=== PATIENT | male | born 1950 | race Caucasian/White ===

== ENCOUNTER 2017-06-28 13:07 | Inpatient (IN) ==
[2017-06-28] MEDS ORDERED: VANCOMYCIN INJ 1,000 MG in SODIUM CHLORIDE 0.9% 250 ML IV STA (13:47)
[2017-06-28] MEDS ORDERED: VANCOMYCIN 1,000 MG VIAL ONE (13:55)
[2017-06-28] MEDS ORDERED: SODIUM CHLORIDE 0.9% 500 ML IV STA (14:03)
[2017-06-28 14:18] LABS: INR 1.6; PT Patient Result 16.3 SECS; Partial Thromboplastin Time 32.9 SECS (0-40)
[2017-06-28] MEDS ORDERED: ALBUMIN 25% 50 GM in PREMIX 1 EACH IV ONE (14:35)
[2017-06-28] MEDS ORDERED: ALBUMIN 25% 12.5 GM/50 ML VIAL IV ONE (14:37)
[2017-06-28] MEDS ORDERED: DEXTROSE 50% 25 GM/50 ML VIAL IV PRN (16:37)
[2017-06-28] MEDS ORDERED: GLUCAGON 1 MG VIAL IM PRN (16:37)
[2017-06-28] MEDS ORDERED: ONDANSETRON 4 MG/2 ML VIAL IV PRN (16:37)
[2017-06-28] MEDS ORDERED: ONDANSETRON 4 MG TABLET PO PRN (16:39)
[2017-06-28] MEDS ORDERED: MAGNESIUM OXIDE 400 MG TABLET PO SCH (17:00)
[2017-06-28 17:42] LABS: Basophils # 0.1 10*3/uL (0.0-0.2); Basophils % 0.2 % (0.0-0.8); Eosinophils % 0.1 % (0.00-10.9); Hematocrit 28.1 VOL% (42.0-52.0); Hemoglobin 9.4 GM/DL (14.0-18.0); Immature Granulocytes % 1.8 %; Immature Granulocytes Absolute 0.47 #; Lymphocytes # 0.4 10*3/uL (1.4-4.0); Lymphocytes % 1.4 % (21.2-54.2); Mean Corpuscular HGB Conc 33.5 GM/DL (32-36); Mean Corpuscular Hemoglobin 37 PG (27-34); Mean Corpuscular Volume 110.6 FL (87-102); Mean Platelet Volume 13.2 FL (9.6-12.0); Monocytes # 0.4 10*3/uL (0.11-0.8); Monocytes % 1.6 % (1.7-12.7); Neutrophils % 94.9 % (38.7-73.9); Red Blood Count 2.54 MC/CUMM (3.8-5.5); Red Cell Distribution Width 16.5 % (9.3-17.3); White Blood Count 26.4 T/CUMM (4-12)
[2017-06-28 17:44] LABS: Platelet Count 74 T/CUMM (130-400)
[2017-06-28] MEDS: CLINDAMYCIN 300 MG CAPSULE PO SCH ×2 (17:44→21:42)
[2017-06-28 17:54] LABS: Albumin 1.7 G/DL (3.4-5.0); Bilirubin,Direct 1.3 MG/DL (0.0-0.20); Bilirubin,Total 2.3 MG/DL (0.2-1.0); Calcium 7.8 MG/DL (8.5-10.1); Potassium 5.9 MMOL/L (3.5-5.1); Total Protein 5.2 G/DL (6.4-8.3)
[2017-06-28 18:14] LABS: Band Neutrophils 10 % (0-10); Platelet Estimate Decreased; Segmented Neutrophils 88 % (50-85); Total Cells Counted 100
[2017-06-28] MEDS ORDERED: VANCOMYCIN INJ 1,500 MG in SODIUM CHLORIDE 0.9% 500 ML IV SCH (19:00)
[2017-06-28] MEDS ORDERED: SODIUM POLYSTYRENE SULFATE 15 GM/60 ML BOTTLE PO ONE (19:00)
[2017-06-28] MEDS ORDERED: VANCOMYCIN INJ 500 MG in SODIUM CHLORIDE 0.9% 100 ML IV ONE (20:00)
[2017-06-28] MEDS: MUPIROCIN 2% OINT 22 GM TUBE TOP SCH (21:42)
[2017-06-28] MEDS: FLUTICASONE 50 MCG NASAL SPRAY 16 GM BOTTLE BOTH NARES SCH (21:42)
[2017-06-28] MEDS: TAMSULOSIN 0.4 MG CAPSULE PO SCH (21:42)
[2017-06-28] MEDS: INSULIN REGULAR 100 UNIT/ML SUBCUT SCH (22:28)
[2017-06-29 06:18] LABS: Basophils % 0.1 % (0.0-0.8); Eosinophils % 0.2 % (0.00-10.9); Hemoglobin 8.6 GM/DL (14.0-18.0); Immature Granulocytes % 2.1 %; Immature Granulocytes Absolute 0.37 #; Lymphocytes # 0.5 10*3/uL (1.4-4.0); Lymphocytes % 2.8 % (21.2-54.2); Mean Corpuscular HGB Conc 34.4 GM/DL (32-36); Mean Corpuscular Hemoglobin 37 PG (27-34); Mean Corpuscular Volume 107.3 FL (87-102); Mean Platelet Volume 12.3 FL (9.6-12.0); Monocytes # 0.8 10*3/uL (0.11-0.8); Monocytes % 4.4 % (1.7-12.7); Neutrophils % 90.4 % (38.7-73.9); Platelet Count 60 T/CUMM (130-400); Red Blood Count 2.33 MC/CUMM (3.8-5.5); Red Cell Distribution Width 16.8 % (9.3-17.3); White Blood Count 17.7 T/CUMM (4-12)
[2017-06-29 06:29] LABS: Hemoglobin A1C 5.7 % (4.2-6.3)
[2017-06-29 06:33] LABS: Vancomycin,Random 9.2 UG/ML
[2017-06-29 06:34] LABS: Albumin 1.7 G/DL (3.4-5.0); Bilirubin,Direct 1.32 MG/DL (0.0-0.20); Bilirubin,Indirect 1.3 MG/DL (0.0-1.0); Bilirubin,Total 2.6 MG/DL (0.2-1.0); Calcium 7.8 MG/DL (8.5-10.1); Osmolality,Calculated 325.3 MOS/KG (273-304); Potassium 5.5 MMOL/L (3.5-5.1); Total Protein 4.6 G/DL (6.4-8.3)
[2017-06-29 06:40] LABS: Hypochromasia 1+; Lymphocytes 3 % (20-55); Polychromasia Slight; Segmented Neutrophils 96 % (50-85); Total Cells Counted 100
[2017-06-29 06:41] LABS: Ovalocytes Slight
[2017-06-29 06:42] LABS: Macrocytosis 1+; Platelet Estimate Decreased; Target Cells Slight
[2017-06-29 07:12] LABS: Apearance,Urine Slightly Hazy (Clear); Bacteria,Urine Moderate /HPF (Few); Bilirubin,Urine Negative (Negative); Blood, Urine Negative (Negative); Glucose,Urine (UA) Negative (Negative); Hyaline Casts,Urine 41 /LPF (0-3); Ketones,Urine Negative (Negative); Mucus,Urine Occasional /LPF (Occasional); Nitrite,Urine Negative (Negative); Protein,Urine Negative; RBC,Urine 2 /HPF (0-4); Squamous Epithelial Cell,Urine Occasional /HPF (0-10); Urine Color Yellow (Yellow); Urine Specific Gravity 1.012 (1.001-1.035); Urine Urobilinogen < 2.0 EU/DL (0.2-1.0); WBC,Urine 33 /HPF (0-6)
[2017-06-29] MEDS ORDERED: VANCOMYCIN INJ 500 MG in SODIUM CHLORIDE 0.9% 100 ML IV ONE (08:30)
[2017-06-29] MEDS: MYLANTA/LIDO VISC/NYST 180 ML BOTTLE SWISH/SWAL SCH ×4 (08:40→20:52)
[2017-06-29] MEDS: MEROPENEM 500 MG in SYRINGE 1 EACH IV SCH ×2 (08:46→20:53)
[2017-06-29] MEDS: ASPIRIN EC 81 MG TABLET PO SCH (08:51)
[2017-06-29] MEDS: FEXOFENADINE 180 MG TABLET PO SCH (08:51)
[2017-06-29] MEDS: ONDANSETRON 4 MG TABLET PO PRN (08:51)
[2017-06-29] MEDS: PANTOPRAZOLE 40 MG TABLET PO SCH (08:52)
[2017-06-29] MEDS: TAMSULOSIN 0.4 MG CAPSULE PO SCH ×2 (08:52→20:52)
[2017-06-29] MEDS: INSULIN REGULAR 100 UNIT/ML SUBCUT SCH ×4 (08:52→20:56)
[2017-06-29] MEDS: CLINDAMYCIN 300 MG CAPSULE PO SCH (08:52)
[2017-06-29] MEDS: MUPIROCIN 2% OINT 22 GM TUBE TOP SCH ×3 (08:52→20:56)
[2017-06-29] MEDS ORDERED: SPIRONOLACTONE 25 MG TABLET PO SCH (09:00)
[2017-06-29] MEDS: METOPROLOL SUCCINATE XL 100 MG TABLET PO SCH (11:31)
[2017-06-29] MEDS: ALBUMIN 25% 25 GM in PREMIX 1 EACH IV SCH ×2 (11:33→20:55)
[2017-06-29] MEDS: SODIUM BICARB INJ 100 MEQ in DEXTROSE 5% 1,000 ML IV SCH (11:41)
[2017-06-29] MEDS: FLUTICASONE 50 MCG NASAL SPRAY 16 GM BOTTLE BOTH NARES SCH (20:52)
[2017-06-30 04:04] LABS: Eosinophils # 0.1 10*3/uL (0.0-0.87); Eosinophils % 1.2 % (0.00-10.9); Hematocrit 21.4 VOL% (42.0-52.0); Hemoglobin 7.6 GM/DL (14.0-18.0); Immature Granulocytes Absolute 0.11 #; Lymphocytes # 0.4 10*3/uL (1.4-4.0); Lymphocytes % 4.2 % (21.2-54.2); Mean Corpuscular HGB Conc 35.5 GM/DL (32-36); Mean Corpuscular Hemoglobin 37 PG (27-34); Mean Corpuscular Volume 104.4 FL (87-102); Mean Platelet Volume 13.4 FL (9.6-12.0); Monocytes # 0.6 10*3/uL (0.11-0.8); Monocytes % 5.5 % (1.7-12.7); Neutrophils # 9.3 10*3/uL (1.4-7.4); Neutrophils % 88.1 % (38.7-73.9); Platelet Count 45 T/CUMM (130-400); Red Blood Count 2.05 MC/CUMM (3.8-5.5); Red Cell Distribution Width 17.2 % (9.3-17.3); White Blood Count 10.5 T/CUMM (4-12)
[2017-06-30 04:35] LABS: Albumin 2.1 G/DL (3.4-5.0); Bilirubin,Direct 1.09 MG/DL (0.0-0.20); Bilirubin,Indirect 2.1 MG/DL (0.0-1.0); Bilirubin,Total 3.2 MG/DL (0.2-1.0); Calcium 7.4 MG/DL (8.5-10.1); Osmolality,Calculated 322.3 MOS/KG (273-304); Potassium 4.4 MMOL/L (3.5-5.1); Total Protein 4.4 G/DL (6.4-8.3)
[2017-06-30] MEDS: ALBUMIN 25% 25 GM in PREMIX 1 EACH IV SCH ×3 (05:25→20:48)
[2017-06-30 06:01] LABS: Band Neutrophils 2 % (0-10); Elliptocytes Few; Eosinophils 2 % (0-10); Hypochromasia 1+; Lymphocytes 5 % (20-55); Platelet Estimate Decreased; Segmented Neutrophils 87 % (50-85); Total Cells Counted 100
[2017-06-30 06:02] LABS: Macrocytosis Slight; Polychromasia Slight
[2017-06-30] MEDS: MYLANTA/LIDO VISC/NYST 180 ML BOTTLE SWISH/SWAL SCH ×4 (09:42→20:31)
[2017-06-30] MEDS: ASPIRIN EC 81 MG TABLET PO SCH (09:42)
[2017-06-30] MEDS: PANTOPRAZOLE 40 MG TABLET PO SCH (09:42)
[2017-06-30] MEDS: TAMSULOSIN 0.4 MG CAPSULE PO SCH ×2 (09:42→20:30)
[2017-06-30] MEDS: METOPROLOL SUCCINATE XL 100 MG TABLET PO SCH (09:42)
[2017-06-30] MEDS: FEXOFENADINE 180 MG TABLET PO SCH (09:42)
[2017-06-30] MEDS: MEROPENEM 500 MG in SYRINGE 1 EACH IV SCH ×2 (09:43→20:43)
[2017-06-30] MEDS: MUPIROCIN 2% OINT 22 GM TUBE TOP SCH ×3 (09:44→20:31)
[2017-06-30] MEDS: INSULIN REGULAR 100 UNIT/ML SUBCUT SCH ×4 (10:33→20:32)
[2017-06-30] MEDS: miSOPROStol 200 MCG TABLET PO SCH ×3 (11:41→20:30)
[2017-06-30] MEDS ORDERED: SODIUM CHLORIDE 0.9% 1,000 ML IV PRN ×2 (14:20→14:24)
[2017-06-30] MEDS ORDERED: VANCOMYCIN INJ 1,500 MG in SODIUM CHLORIDE 0.9% 500 ML IV PRN (20:00)
[2017-06-30] MEDS: FLUTICASONE 50 MCG NASAL SPRAY 16 GM BOTTLE BOTH NARES SCH (20:36)
[2017-06-30 21:47] LABS: Hematocrit 24.7 VOL% (42.0-52.0); Hemoglobin 8.5 GM/DL (14.0-18.0)
[2017-07-01] MEDS: ACETAMINOPHEN 325 MG TABLET PO PRN (01:19)
[2017-07-01] MEDS: ALBUMIN 25% 25 GM in PREMIX 1 EACH IV SCH (04:13)
[2017-07-01 05:33] LABS: Basophils % 0.2 % (0.0-0.8); Eosinophils # 0.2 10*3/uL (0.0-0.87); Eosinophils % 1.9 % (0.00-10.9); Hematocrit 22.6 VOL% (42.0-52.0); Hemoglobin 7.7 GM/DL (14.0-18.0); Immature Granulocytes % 0.9 %; Immature Granulocytes Absolute 0.08 #; Lymphocytes # 0.6 10*3/uL (1.4-4.0); Lymphocytes % 7.5 % (21.2-54.2); Mean Corpuscular HGB Conc 34.1 GM/DL (32-36); Mean Corpuscular Hemoglobin 35 PG (27-34); Mean Corpuscular Volume 103.7 FL (87-102); Monocytes # 0.6 10*3/uL (0.11-0.8); Monocytes % 7.5 % (1.7-12.7); Neutrophils # 6.9 10*3/uL (1.4-7.4); Platelet Count 41 T/CUMM (130-400); Red Blood Count 2.18 MC/CUMM (3.8-5.5); Red Cell Distribution Width 18.4 % (9.3-17.3); White Blood Count 8.5 T/CUMM (4-12)
[2017-07-01 06:02] LABS: Albumin 2.7 G/DL (3.4-5.0); Bilirubin,Total 3.5 MG/DL (0.2-1.0); Calcium 7.6 MG/DL (8.5-10.1); Osmolality,Calculated 319.4 MOS/KG (273-304); Potassium 4.7 MMOL/L (3.5-5.1); Total Protein 4.6 G/DL (6.4-8.3)
[2017-07-01 07:22] LABS: Eosinophils 3 % (0-10); Lymphocytes 3 % (20-55); Platelet Estimate Decreased; Segmented Neutrophils 88 % (50-85); Total Cells Counted 100
[2017-07-01 07:23] LABS: Hypochromasia 1+; Macrocytosis Slight
[2017-07-01] MEDS ORDERED: SODIUM CHLORIDE 0.9% 1,000 ML IV PRN (08:52)
[2017-07-01] MEDS: ASPIRIN EC 81 MG TABLET PO SCH (10:10)
[2017-07-01] MEDS: TAMSULOSIN 0.4 MG CAPSULE PO SCH ×2 (10:10→20:52)
[2017-07-01] MEDS: FEXOFENADINE 180 MG TABLET PO SCH (10:10)
[2017-07-01] MEDS: PANTOPRAZOLE 40 MG TABLET PO SCH (10:10)
[2017-07-01] MEDS: METOPROLOL SUCCINATE XL 100 MG TABLET PO SCH (10:10)
[2017-07-01] MEDS: miSOPROStol 200 MCG TABLET PO SCH ×4 (10:10→20:52)
[2017-07-01] MEDS: MUPIROCIN 2% OINT 22 GM TUBE TOP SCH ×3 (10:11→20:51)
[2017-07-01] MEDS: MEROPENEM 500 MG in SYRINGE 1 EACH IV SCH ×2 (10:11→20:59)
[2017-07-01] MEDS: MYLANTA/LIDO VISC/NYST 180 ML BOTTLE SWISH/SWAL SCH ×4 (10:11→20:52)
[2017-07-01] MEDS: INSULIN REGULAR 100 UNIT/ML SUBCUT SCH ×4 (10:12→22:02)
[2017-07-01 18:23] LABS: Hematocrit 29.2 VOL% (42.0-52.0); Hemoglobin 10.1 GM/DL (14.0-18.0)
[2017-07-01] MEDS: FLUTICASONE 50 MCG NASAL SPRAY 16 GM BOTTLE BOTH NARES SCH (20:52)
[2017-07-02 06:06] LABS: Basophils % 0.3 % (0.0-0.8); Eosinophils # 0.1 10*3/uL (0.0-0.87); Eosinophils % 1.1 % (0.00-10.9); Hematocrit 27.9 VOL% (42.0-52.0); Hemoglobin 9.9 GM/DL (14.0-18.0); Immature Granulocytes % 1.1 %; Lymphocytes # 0.7 10*3/uL (1.4-4.0); Lymphocytes % 7.8 % (21.2-54.2); Mean Corpuscular HGB Conc 35.5 GM/DL (32-36); Mean Corpuscular Hemoglobin 36 PG (27-34); Mean Platelet Volume 12.8 FL (9.6-12.0); Monocytes # 0.7 10*3/uL (0.11-0.8); Neutrophils # 7.4 10*3/uL (1.4-7.4); Neutrophils % 81.7 % (38.7-73.9); Platelet Count 48 T/CUMM (130-400); Red Blood Count 2.79 MC/CUMM (3.8-5.5); Red Cell Distribution Width 19.4 % (9.3-17.3); White Blood Count 9.1 T/CUMM (4-12)
[2017-07-02 06:29] LABS: % Iron Saturation 71.7 % (18-50); Ferritin 1519.6 ng/ml (26-388)
[2017-07-02 06:35] LABS: Macrocytosis 2+; Platelet Estimate Decreased
[2017-07-02 06:44] LABS: Folate 5.9 NG/ML (5.4-24.0); Vitamin B12 1667 PG/ML (211-911)
[2017-07-02 08:29] LABS: Albumin 2.4 G/DL (3.4-5.0); Calcium 7.3 MG/DL (8.5-10.1); Osmolality,Calculated 319.5 MOS/KG (273-304); Potassium 4.7 MMOL/L (3.5-5.1)
[2017-07-02 09:23] LABS: Hemoglobin A1 (Alkaline) 97.4 % (96.5-98.5); Hemoglobin A2 (Alkaline) 2.6 % (1.5-3.5)
[2017-07-02 09:44] LABS: Sedimentation Rate-Westergren 49 MM/HR (0-20)
[2017-07-02] MEDS: INSULIN REGULAR 100 UNIT/ML SUBCUT SCH ×4 (10:30→20:50)
[2017-07-02] MEDS: MYLANTA/LIDO VISC/NYST 180 ML BOTTLE SWISH/SWAL SCH ×4 (10:35→20:46)
[2017-07-02] MEDS: TAMSULOSIN 0.4 MG CAPSULE PO SCH ×2 (10:36→20:46)
[2017-07-02] MEDS: METOPROLOL SUCCINATE XL 100 MG TABLET PO SCH (10:36)
[2017-07-02] MEDS: MEROPENEM 500 MG in SYRINGE 1 EACH IV SCH (10:36)
[2017-07-02] MEDS: PANTOPRAZOLE 40 MG TABLET PO SCH (10:36)
[2017-07-02] MEDS: FEXOFENADINE 180 MG TABLET PO SCH (10:36)
[2017-07-02] MEDS: ASPIRIN EC 81 MG TABLET PO SCH (10:36)
[2017-07-02] MEDS: miSOPROStol 200 MCG TABLET PO SCH ×4 (10:36→20:45)
[2017-07-02] MEDS: MUPIROCIN 2% OINT 22 GM TUBE TOP SCH ×3 (10:37→20:49)
[2017-07-02] MEDS: SODIUM BICARB INJ 100 MEQ in DEXTROSE 5% 1,000 ML IV SCH (13:40)
[2017-07-02] MEDS: ERTAPENEM 500 MG in SODIUM CHLORIDE 0.9% 100 ML IV SCH (17:05)
[2017-07-02] MEDS: FLUTICASONE 50 MCG NASAL SPRAY 16 GM BOTTLE BOTH NARES SCH (20:46)
[2017-07-03 07:10] LABS: Basophils % 0.4 % (0.0-0.8); Eosinophils # 0.1 10*3/uL (0.0-0.87); Eosinophils % 1.8 % (0.00-10.9); Hematocrit 29.5 VOL% (42.0-52.0); Hemoglobin 10.2 GM/DL (14.0-18.0); Immature Granulocytes % 1.4 %; Immature Granulocytes Absolute 0.11 #; Lymphocytes # 0.6 10*3/uL (1.4-4.0); Lymphocytes % 7.2 % (21.2-54.2); Mean Corpuscular HGB Conc 34.6 GM/DL (32-36); Mean Corpuscular Hemoglobin 35 PG (27-34); Mean Platelet Volume 13.8 FL (9.6-12.0); Monocytes # 0.6 10*3/uL (0.11-0.8); Monocytes % 7.7 % (1.7-12.7); Neutrophils # 6.5 10*3/uL (1.4-7.4); Neutrophils % 81.5 % (38.7-73.9); Platelet Count 48 T/CUMM (130-400); Red Blood Count 2.92 MC/CUMM (3.8-5.5); Red Cell Distribution Width 18.6 % (9.3-17.3); White Blood Count 7.9 T/CUMM (4-12)
[2017-07-03 07:31] LABS: Hypochromasia 1+; Macrocytosis 1+; Ovalocytes Slight; Target Cells Few
[2017-07-03 07:32] LABS: Platelet Estimate Decreased
[2017-07-03 07:35] LABS: Albumin 2.3 G/DL (3.4-5.0); Calcium 7.5 MG/DL (8.5-10.1); Osmolality,Calculated 319.4 MOS/KG (273-304); Potassium 4.8 MMOL/L (3.5-5.1)
[2017-07-03] MEDS: INSULIN REGULAR 100 UNIT/ML SUBCUT SCH ×4 (09:50→21:10)
[2017-07-03] MEDS: miSOPROStol 200 MCG TABLET PO SCH ×4 (09:51→21:08)
[2017-07-03] MEDS: METOPROLOL SUCCINATE XL 100 MG TABLET PO SCH (09:51)
[2017-07-03] MEDS: ASPIRIN EC 81 MG TABLET PO SCH (09:51)
[2017-07-03] MEDS: ERTAPENEM 500 MG in SODIUM CHLORIDE 0.9% 100 ML IV SCH (09:51)
[2017-07-03] MEDS: PANTOPRAZOLE 40 MG TABLET PO SCH (09:51)
[2017-07-03] MEDS: TAMSULOSIN 0.4 MG CAPSULE PO SCH ×2 (09:51→21:08)
[2017-07-03] MEDS: FEXOFENADINE 180 MG TABLET PO SCH (09:51)
[2017-07-03] MEDS: MUPIROCIN 2% OINT 22 GM TUBE TOP SCH ×3 (09:52→21:10)
[2017-07-03] MEDS: MYLANTA/LIDO VISC/NYST 180 ML BOTTLE SWISH/SWAL SCH ×4 (09:52→21:10)
[2017-07-03] MEDS: ONDANSETRON 4 MG TABLET PO PRN (18:34)
[2017-07-03] MEDS: ACETAMINOPHEN 325 MG TABLET PO PRN (18:34)
[2017-07-03] MEDS: FLUTICASONE 50 MCG NASAL SPRAY 16 GM BOTTLE BOTH NARES SCH (21:09)
[2017-07-03] MEDS: ERTAPENEM 1,000 MG in SODIUM CHLORIDE 0.9% 100 ML IV SCH (21:10)
[2017-07-04 06:17] LABS: Albumin 2.2 G/DL (3.4-5.0); Calcium 7.5 MG/DL (8.5-10.1); Osmolality,Calculated 325.3 MOS/KG (273-304); Potassium 5.1 MMOL/L (3.5-5.1)
[2017-07-04] MEDS: INSULIN REGULAR 100 UNIT/ML SUBCUT SCH ×4 (08:36→20:35)
[2017-07-04] MEDS: miSOPROStol 200 MCG TABLET PO SCH ×4 (08:58→20:26)
[2017-07-04] MEDS: MYLANTA/LIDO VISC/NYST 180 ML BOTTLE SWISH/SWAL SCH ×4 (08:58→20:26)
[2017-07-04] MEDS: CHOLECALCIFEROL 1,000 UNIT TABLET PO SCH (08:59)
[2017-07-04] MEDS: METOPROLOL SUCCINATE XL 100 MG TABLET PO SCH (08:59)
[2017-07-04] MEDS: TAMSULOSIN 0.4 MG CAPSULE PO SCH ×2 (08:59→20:26)
[2017-07-04] MEDS: MUPIROCIN 2% OINT 22 GM TUBE TOP SCH ×3 (08:59→20:27)
[2017-07-04] MEDS: PANTOPRAZOLE 40 MG TABLET PO SCH (08:59)
[2017-07-04] MEDS: FEXOFENADINE 180 MG TABLET PO SCH (08:59)
[2017-07-04] MEDS: ASPIRIN EC 81 MG TABLET PO SCH (08:59)
[2017-07-04] MEDS ORDERED: TUBERCULIN SKIN TEST 0.1 ML SYRINGE INTRADERM ONE (11:00)
[2017-07-04 17:15] LABS: Neutrophils,Peritoneal Fluid 47 %
[2017-07-04 17:19] LABS: RBC,Peritoneal Fluid 433 T/CUMM
[2017-07-04] MEDS: FLUTICASONE 50 MCG NASAL SPRAY 16 GM BOTTLE BOTH NARES SCH (20:27)
[2017-07-04] MEDS: ERTAPENEM 1,000 MG in SODIUM CHLORIDE 0.9% 100 ML IV SCH (20:30)
[2017-07-05 05:43] LABS: Basophils % 0.3 % (0.0-0.8); Eosinophils # 0.1 10*3/uL (0.0-0.87); Eosinophils % 1.4 % (0.00-10.9); Hematocrit 30.9 VOL% (42.0-52.0); Hemoglobin 10.7 GM/DL (14.0-18.0); Immature Granulocytes % 1.1 %; Immature Granulocytes Absolute 0.07 #; Lymphocytes # 0.7 10*3/uL (1.4-4.0); Lymphocytes % 11.2 % (21.2-54.2); Mean Corpuscular HGB Conc 34.6 GM/DL (32-36); Mean Corpuscular Hemoglobin 36 PG (27-34); Mean Corpuscular Volume 103.3 FL (87-102); Mean Platelet Volume 13.6 FL (9.6-12.0); Monocytes # 0.6 10*3/uL (0.11-0.8); Monocytes % 9.1 % (1.7-12.7); Neutrophils # 5.1 10*3/uL (1.4-7.4); Neutrophils % 76.9 % (38.7-73.9); Platelet Count 46 T/CUMM (130-400); Red Blood Count 2.99 MC/CUMM (3.8-5.5); Red Cell Distribution Width 19.1 % (9.3-17.3); White Blood Count 6.6 T/CUMM (4-12)
[2017-07-05 06:10] LABS: Macrocytosis 3+; Platelet Estimate Decreased
[2017-07-05 06:13] LABS: Albumin 2.1 G/DL (3.4-5.0); Calcium 7.5 MG/DL (8.5-10.1)
[2017-07-05] MEDS: MYLANTA/LIDO VISC/NYST 180 ML BOTTLE SWISH/SWAL SCH ×4 (08:29→20:29)
[2017-07-05] MEDS: INSULIN REGULAR 100 UNIT/ML SUBCUT SCH ×4 (08:59→20:48)
[2017-07-05] MEDS: FEXOFENADINE 180 MG TABLET PO SCH (09:00)
[2017-07-05] MEDS: ASPIRIN EC 81 MG TABLET PO SCH (09:00)
[2017-07-05] MEDS: miSOPROStol 200 MCG TABLET PO SCH ×4 (09:00→20:27)
[2017-07-05] MEDS: CHOLECALCIFEROL 1,000 UNIT TABLET PO SCH (09:00)
[2017-07-05] MEDS: TAMSULOSIN 0.4 MG CAPSULE PO SCH ×2 (09:00→20:27)
[2017-07-05] MEDS: METOPROLOL SUCCINATE XL 100 MG TABLET PO SCH (09:00)
[2017-07-05] MEDS: MUPIROCIN 2% OINT 22 GM TUBE TOP SCH ×3 (09:00→20:29)
[2017-07-05] MEDS: PANTOPRAZOLE 40 MG TABLET PO SCH (09:00)
[2017-07-05] MEDS: FLUTICASONE 50 MCG NASAL SPRAY 16 GM BOTTLE BOTH NARES SCH (20:30)
[2017-07-05] MEDS: ERTAPENEM 1,000 MG in SODIUM CHLORIDE 0.9% 100 ML IV SCH (20:32)
[2017-07-06 05:52] LABS: Basophils % 0.4 % (0.0-0.8); Eosinophils # 0.1 10*3/uL (0.0-0.87); Eosinophils % 1.3 % (0.00-10.9); Hematocrit 31.9 VOL% (42.0-52.0); Hemoglobin 11.2 GM/DL (14.0-18.0); Immature Granulocytes % 0.7 %; Immature Granulocytes Absolute 0.05 #; Lymphocytes % 13.2 % (21.2-54.2); Mean Corpuscular HGB Conc 35.1 GM/DL (32-36); Mean Corpuscular Hemoglobin 36 PG (27-34); Mean Corpuscular Volume 102.2 FL (87-102); Monocytes # 0.6 10*3/uL (0.11-0.8); Monocytes % 7.9 % (1.7-12.7); Neutrophils # 5.8 10*3/uL (1.4-7.4); Neutrophils % 76.5 % (38.7-73.9); Platelet Count 46 T/CUMM (130-400); Red Blood Count 3.12 MC/CUMM (3.8-5.5); Red Cell Distribution Width 19.3 % (9.3-17.3); White Blood Count 7.6 T/CUMM (4-12)
[2017-07-06 06:29] LABS: Burr Cells 2+; Calcium 7.5 MG/DL (8.5-10.1); Hypochromasia 1+; Lymphocytes 3 % (20-55); Osmolality,Calculated 329.6 MOS/KG (273-304); Platelet Estimate Decreased; Potassium 5.1 MMOL/L (3.5-5.1); Segmented Neutrophils 95 % (50-85); Target Cells Slight; Total Cells Counted 100
[2017-07-06] MEDS ORDERED: ALPRAZolam 0.25 MG TABLET PO PRN (08:36)
[2017-07-06] MEDS: INSULIN REGULAR 100 UNIT/ML SUBCUT SCH ×4 (09:02→22:29)
[2017-07-06] MEDS: MYLANTA/LIDO VISC/NYST 180 ML BOTTLE SWISH/SWAL SCH ×4 (09:02→22:38)
[2017-07-06] MEDS: CHOLECALCIFEROL 1,000 UNIT TABLET PO SCH (09:33)
[2017-07-06] MEDS: miSOPROStol 200 MCG TABLET PO SCH ×4 (09:33→22:38)
[2017-07-06] MEDS: METOPROLOL SUCCINATE XL 100 MG TABLET PO SCH (09:34)
[2017-07-06] MEDS: TAMSULOSIN 0.4 MG CAPSULE PO SCH ×2 (09:34→22:34)
[2017-07-06] MEDS: PANTOPRAZOLE 40 MG TABLET PO SCH (09:34)
[2017-07-06] MEDS: MUPIROCIN 2% OINT 22 GM TUBE TOP SCH ×3 (09:34→22:35)
[2017-07-06] MEDS: FEXOFENADINE 180 MG TABLET PO SCH (09:34)
[2017-07-06] MEDS: ASPIRIN EC 81 MG TABLET PO SCH (09:34)
[2017-07-06] MEDS: ERTAPENEM 1,000 MG in SODIUM CHLORIDE 0.9% 100 ML IV SCH (21:55)
[2017-07-06] MEDS: FLUTICASONE 50 MCG NASAL SPRAY 16 GM BOTTLE BOTH NARES SCH (22:35)
[2017-07-07 06:02] LABS: Basophils % 0.4 % (0.0-0.8); Eosinophils # 0.1 10*3/uL (0.0-0.87); Eosinophils % 1.3 % (0.00-10.9); Hematocrit 31.1 VOL% (42.0-52.0); Hemoglobin 10.9 GM/DL (14.0-18.0); Immature Granulocytes % 0.6 %; Immature Granulocytes Absolute 0.06 #; Lymphocytes # 1.4 10*3/uL (1.4-4.0); Lymphocytes % 15.4 % (21.2-54.2); Mean Corpuscular Hemoglobin 36 PG (27-34); Monocytes # 0.6 10*3/uL (0.11-0.8); Monocytes % 5.9 % (1.7-12.7); Neutrophils # 7.2 10*3/uL (1.4-7.4); Neutrophils % 76.4 % (38.7-73.9); Red Blood Count 3.05 MC/CUMM (3.8-5.5); Red Cell Distribution Width 19.5 % (9.3-17.3); White Blood Count 9.4 T/CUMM (4-12)
[2017-07-07 06:10] LABS: Platelet Count 49 T/CUMM (130-400)
[2017-07-07 06:29] LABS: Calcium 7.4 MG/DL (8.5-10.1); Osmolality,Calculated 325.4 MOS/KG (273-304); Potassium 5.1 MMOL/L (3.5-5.1)
[2017-07-07 06:30] LABS: Macrocytosis 1+; Ovalocytes Slight; Target Cells Slight
[2017-07-07 06:31] LABS: Hypochromasia 1+; Platelet Estimate Decreased
[2017-07-07] MEDS: METOPROLOL SUCCINATE XL 100 MG TABLET PO SCH (08:43)
[2017-07-07] MEDS: CHOLECALCIFEROL 1,000 UNIT TABLET PO SCH (08:43)
[2017-07-07] MEDS: FEXOFENADINE 180 MG TABLET PO SCH (08:43)
[2017-07-07] MEDS: MYLANTA/LIDO VISC/NYST 180 ML BOTTLE SWISH/SWAL SCH ×4 (08:43→21:58)
[2017-07-07] MEDS: TAMSULOSIN 0.4 MG CAPSULE PO SCH ×2 (08:43→22:38)
[2017-07-07] MEDS: INSULIN REGULAR 100 UNIT/ML SUBCUT SCH ×4 (08:43→21:57)
[2017-07-07] MEDS: ASPIRIN EC 81 MG TABLET PO SCH (08:43)
[2017-07-07] MEDS: MUPIROCIN 2% OINT 22 GM TUBE TOP SCH ×3 (08:43→22:38)
[2017-07-07] MEDS: PANTOPRAZOLE 40 MG TABLET PO SCH (08:43)
[2017-07-07] MEDS: miSOPROStol 200 MCG TABLET PO SCH ×4 (08:43→22:38)
[2017-07-07] MEDS: ACETAMINOPHEN 325 MG TABLET PO PRN (09:42)
[2017-07-07] MEDS: ERTAPENEM 1,000 MG in SODIUM CHLORIDE 0.9% 100 ML IV SCH (22:00)
[2017-07-07] MEDS: FLUTICASONE 50 MCG NASAL SPRAY 16 GM BOTTLE BOTH NARES SCH (22:38)
[2017-07-08 06:54] LABS: Basophils % 0.3 % (0.0-0.8); Eosinophils # 0.2 10*3/uL (0.0-0.87); Eosinophils % 1.5 % (0.00-10.9); Hematocrit 32.2 VOL% (42.0-52.0); Hemoglobin 10.9 GM/DL (14.0-18.0); Immature Granulocytes % 0.5 %; Immature Granulocytes Absolute 0.06 #; Lymphocytes # 1.8 10*3/uL (1.4-4.0); Lymphocytes % 16.4 % (21.2-54.2); Mean Corpuscular HGB Conc 33.9 GM/DL (32-36); Mean Corpuscular Hemoglobin 35 PG (27-34); Mean Corpuscular Volume 104.5 FL (87-102); Monocytes # 0.6 10*3/uL (0.11-0.8); Monocytes % 5.8 % (1.7-12.7); Neutrophils # 8.3 10*3/uL (1.4-7.4); Neutrophils % 75.5 % (38.7-73.9); Platelet Count 57 T/CUMM (130-400); Red Blood Count 3.08 MC/CUMM (3.8-5.5); Red Cell Distribution Width 19.6 % (9.3-17.3); White Blood Count 10.9 T/CUMM (4-12)
[2017-07-08 07:15] LABS: Hypochromasia 1+; Lymphocytes 9 % (20-55); Ovalocytes Slight; Segmented Neutrophils 87 % (50-85); Target Cells Slight; Total Cells Counted 100
[2017-07-08 07:16] LABS: Macrocytosis 1+; Platelet Estimate Decreased
[2017-07-08 07:22] LABS: Calcium 7.5 MG/DL (8.5-10.1); Osmolality,Calculated 321.6 MOS/KG (273-304); Potassium 4.7 MMOL/L (3.5-5.1)
[2017-07-08] MEDS: TAMSULOSIN 0.4 MG CAPSULE PO SCH ×2 (09:40→20:16)
[2017-07-08] MEDS: ASPIRIN EC 81 MG TABLET PO SCH (09:40)
[2017-07-08] MEDS: CHOLECALCIFEROL 1,000 UNIT TABLET PO SCH (09:40)
[2017-07-08] MEDS: FEXOFENADINE 180 MG TABLET PO SCH (09:40)
[2017-07-08] MEDS: PANTOPRAZOLE 40 MG TABLET PO SCH (09:40)
[2017-07-08] MEDS: INSULIN REGULAR 100 UNIT/ML SUBCUT SCH ×4 (09:41→21:19)
[2017-07-08] MEDS: MYLANTA/LIDO VISC/NYST 180 ML BOTTLE SWISH/SWAL SCH ×4 (09:41→20:28)
[2017-07-08] MEDS: miSOPROStol 200 MCG TABLET PO SCH ×4 (09:41→20:15)
[2017-07-08] MEDS: METOPROLOL SUCCINATE XL 100 MG TABLET PO SCH (09:41)
[2017-07-08] MEDS: MUPIROCIN 2% OINT 22 GM TUBE TOP SCH ×3 (09:41→20:15)
[2017-07-08] MEDS: FINASTERIDE 5 MG TABLET PO SCH (09:41)
[2017-07-08] MEDS: ACETAMINOPHEN 325 MG TABLET PO PRN (20:16)
[2017-07-08] MEDS: FLUTICASONE 50 MCG NASAL SPRAY 16 GM BOTTLE BOTH NARES SCH (20:23)
[2017-07-08] MEDS: ERTAPENEM 1,000 MG in SODIUM CHLORIDE 0.9% 100 ML IV SCH (20:27)
[2017-07-09] MEDS: INSULIN REGULAR 100 UNIT/ML SUBCUT SCH ×2 (08:01→13:03)
[2017-07-09] MEDS: MYLANTA/LIDO VISC/NYST 180 ML BOTTLE SWISH/SWAL SCH ×2 (09:24→13:03)
[2017-07-09] MEDS: TAMSULOSIN 0.4 MG CAPSULE PO SCH (09:25)
[2017-07-09] MEDS: ASPIRIN EC 81 MG TABLET PO SCH (09:25)
[2017-07-09] MEDS: MUPIROCIN 2% OINT 22 GM TUBE TOP SCH (09:25)
[2017-07-09] MEDS: miSOPROStol 200 MCG TABLET PO SCH (09:25)
[2017-07-09] MEDS: FINASTERIDE 5 MG TABLET PO SCH (09:25)
[2017-07-09] MEDS: FEXOFENADINE 180 MG TABLET PO SCH (09:25)
[2017-07-09] MEDS: PANTOPRAZOLE 40 MG TABLET PO SCH (09:26)
[2017-07-09] MEDS: CHOLECALCIFEROL 1,000 UNIT TABLET PO SCH (09:26)
[2017-07-09] MEDS: METOPROLOL SUCCINATE XL 100 MG TABLET PO SCH (09:26)
[2017-07-09] MEDS ORDERED: FLUCONAZOLE 150 MG TABLET PO ONE (11:30)
[2017-07-09 12:25] VITALS: BP 92/45
== END 2017-07-09 13:27 | DRG 872 ==
LOC: N.ED 13:07 → SUATTDRO 16:01 → N.EDINP 16:01 → N.2E 16:45
PROVIDERS: ADMIT Hospitalist; ATTEND Hospitalist

== ENCOUNTER 2017-07-15 16:44 | Inpatient (IN) ==
[2017-07-15] MEDS ORDERED: NALOXONE 0.4 MG/ML VIAL ONE (16:53)
[2017-07-15] MEDS ORDERED: NALOXONE 0.4 MG/ML VIAL IV STA (16:56)
[2017-07-15] MEDS ORDERED: SODIUM CHLORIDE 0.9% 2,000 ML IV STA (17:11)
[2017-07-15 17:27] LABS: Basophils % 0.2 % (0.0-0.8); Eosinophils # 0.1 10*3/uL (0.0-0.87); Eosinophils % 1.6 % (0.00-10.9); Hematocrit 30.1 VOL% (42.0-52.0); Hemoglobin 9.5 GM/DL (14.0-18.0); Immature Granulocytes % 0.9 %; Immature Granulocytes Absolute 0.04 #; Lymphocytes # 0.7 10*3/uL (1.4-4.0); Lymphocytes % 15.5 % (21.2-54.2); Mean Corpuscular HGB Conc 31.6 GM/DL (32-36); Mean Corpuscular Hemoglobin 36 PG (27-34); Mean Corpuscular Volume 114.9 FL (87-102); Monocytes # 0.1 10*3/uL (0.11-0.8); Monocytes % 2.5 % (1.7-12.7); NRBC # 0.04 10*3/uL; Neutrophils # 3.5 10*3/uL (1.4-7.4); Neutrophils % 79.3 % (38.7-73.9); Platelet Count 46 T/CUMM (130-400); Red Blood Count 2.62 MC/CUMM (3.8-5.5); Red Cell Distribution Width 20.2 % (9.3-17.3); White Blood Count 4.5 T/CUMM (4-12)
[2017-07-15] MEDS ORDERED: NOREPINEPHRINE 4 MG/4 ML VIAL IV ONE (17:28)
[2017-07-15] MEDS: NOREPINEPHRINE 8 MG in SODIUM CHLORIDE 0.9% 242 ML IV PRN ×2 (17:34→21:00)
[2017-07-15 17:46] LABS: Ammonia 28 UMOL/L (11-32)
[2017-07-15] MEDS ORDERED: VANCOMYCIN INJ 1,000 MG in SODIUM CHLORIDE 0.9% 250 ML IV STA (17:49)
[2017-07-15] MEDS ORDERED: MEROPENEM 1,000 MG in SODIUM CHLORIDE 0.9% 100 ML IV STA (17:49)
[2017-07-15 17:52] LABS: INR 2.1
[2017-07-15 17:53] LABS: PT Patient Result 21.7 SECS; Partial Thromboplastin Time 44.2 SECS (0-40)
[2017-07-15 18:05] LABS: Alanine Aminotransferase 48 U/L (16-61); Albumin 1.8 G/DL (3.4-5.0); Alkaline Phosphatase 157 U/L (45-117); Aspartate Amino Transferase 71 U/L (0-37); Blood Urea Nitrogen 135 MG/DL (7-18); Calcium 8.1 MG/DL (8.5-10.1); Glucose 224 MG/DL (74-106); Osmolality,Calculated 342.4 MOS/KG (273-304); Sodium 147 MMOL/L (136-145)
[2017-07-15 18:10] LABS: Potassium 6.7 MMOL/L (3.5-5.1)
[2017-07-15] MEDS ORDERED: DEXTROSE 50% 25 GM/50 ML VIAL IV STA (18:12)
[2017-07-15] MEDS ORDERED: ALBUTEROL 2.5 MG/3 ML NEB RESP TX STA (18:12)
[2017-07-15] MEDS ORDERED: INSULIN REGULAR 100 UNIT/ML IV STA (18:12)
[2017-07-15 18:29] LABS: Sedimentation Rate-Westergren 22 MM/HR (0-20)
[2017-07-15 18:38] LABS: Apearance,Urine CLOUDY (Clear); Bacteria,Urine Moderate /HPF (Few); Bilirubin,Urine Negative (Negative); Blood, Urine Moderate mg/dL (Negative); Glucose,Urine (UA) 50 mg/dL (Negative); Ketones,Urine Negative (Negative); Mucus,Urine Occasional /LPF (Occasional); Nitrite,Urine Negative (Negative); Protein,Urine Negative; RBC,Urine 3 /HPF (0-4); Squamous Epithelial Cell,Urine Occasional /HPF (0-10); Urine Color Amber (Yellow); Urine Specific Gravity 1.016 (1.001-1.035); Urine Urobilinogen < 2.0 EU/DL (0.2-1.0); WBC,Urine 8 /HPF (0-6)
[2017-07-15] MEDS ORDERED: ALBUTEROL 2.5 MG/3 ML NEB RESP TX PRN (18:42)
[2017-07-15] MEDS ORDERED: ACETAMINOPHEN 325 MG TABLET PO PRN (18:42)
[2017-07-15] MEDS ORDERED: ONDANSETRON 4 MG/2 ML VIAL IV PRN (18:42)
[2017-07-15] MEDS ORDERED: INSULIN REGULAR 100 UNIT/ML ONE (18:44)
[2017-07-15] MEDS ORDERED: DEXTROSE 50% 25 GM/50 ML VIAL IV PRN (18:45)
[2017-07-15] MEDS ORDERED: GLUCAGON 1 MG VIAL IM PRN (18:45)
[2017-07-15] MEDS ORDERED: DEXTROSE 50% 25 GM/50 ML SYRINGE IV ONE (18:45)
[2017-07-15 18:46] LABS: Band Neutrophils 1 % (0-10); Lymphocytes 18 % (20-55); Platelet Estimate Decreased; Segmented Neutrophils 72 % (50-85); Total Cells Counted 100
[2017-07-15] MEDS ORDERED: VANCOMYCIN INJ 1,250 MG in SODIUM CHLORIDE 0.9% 250 ML IV PRN (19:00)
[2017-07-15] MEDS ORDERED: ALBUTEROL/IPRATROPIUM 3 ML NEB RESP TX SCH (19:00)
[2017-07-15] MEDS ORDERED: SODIUM POLYSTYRENE SULFATE 15 GM/60 ML BOTTLE PO SCH (19:00)
[2017-07-15] MEDS ORDERED: MORPHINE 4 MG/1 ML VIAL IV PRN (19:05)
[2017-07-15] MEDS ORDERED: PANTOPRAZOLE 40 MG VIAL IV SCH (21:00)
[2017-07-15] MEDS ORDERED: MEROPENEM 1,000 MG in SYRINGE 1 EACH IV SCH (21:00)
[2017-07-15] MEDS: SODIUM POLYSTYRENE SULFATE 15 GM/60 ML BOTTLE RECTAL SCH (22:25)
[2017-07-15] MEDS: INSULIN LISPRO 100 UNIT/ML SUBCUT SCH (22:26)
[2017-07-15] MEDS ORDERED: LORazepam 2 MG/1 ML VIAL IV PRN (23:31)
[2017-07-16] MEDS: MORPHINE 4 MG/1 ML VIAL IV PRN ×2 (01:54→05:02)
[2017-07-16] MEDS: NOREPINEPHRINE 8 MG in SODIUM CHLORIDE 0.9% 242 ML IV PRN ×5 (01:54→15:58)
[2017-07-16] MEDS: SODIUM POLYSTYRENE SULFATE 15 GM/60 ML BOTTLE RECTAL SCH ×3 (03:34→17:56)
[2017-07-16] MEDS ORDERED: DEXTROSE 50% 25 GM/50 ML VIAL IV ONE (07:41)
[2017-07-16] MEDS ORDERED: VANCOMYCIN INJ 1,250 MG in SODIUM CHLORIDE 0.9% 250 ML IV PRN (10:46)
[2017-07-16] MEDS ORDERED: LEVOFLOXACIN INJ 750 MG in PREMIX 1 EACH IV SCH (11:00)
[2017-07-16] MEDS: INSULIN LISPRO 100 UNIT/ML SUBCUT SCH ×4 (12:11→21:03)
[2017-07-16] MEDS: SODIUM CHLORIDE 0.9% 1,000 ML IV SCH ×2 (12:20→21:31)
[2017-07-16] MEDS ORDERED: DEXTROSE 50% 25 GM/50 ML VIAL IV PRN (16:31)
[2017-07-16] MEDS: methylPREDNISolone SOD SUC 40 MG/1 ML VIAL IV SCH (18:01)
[2017-07-16] MEDS: NOREPINEPHRINE 16 MG in SODIUM CHLORIDE 0.9% 234 ML IV PRN (19:27)
[2017-07-16] MEDS: SODIUM POLYSTYRENE SULFATE 15 GM/60 ML BOTTLE NG SCH (21:24)
[2017-07-16] MEDS ORDERED: VANCOMYCIN INJ 1,250 MG in SODIUM CHLORIDE 0.9% 250 ML IV ONE (23:00)
[2017-07-17] MEDS: NOREPINEPHRINE 16 MG in SODIUM CHLORIDE 0.9% 234 ML IV PRN ×2 (02:32→09:33)
[2017-07-17] MEDS: SODIUM POLYSTYRENE SULFATE 15 GM/60 ML BOTTLE NG SCH ×3 (02:34→15:23)
[2017-07-17 04:41] LABS: Basophils # 0.1 10*3/uL (0.0-0.2); Basophils % 0.5 % (0.0-0.8); Eosinophils % 0.2 % (0.00-10.9); Hematocrit 32.2 VOL% (42.0-52.0); Immature Granulocytes % 4.1 %; Immature Granulocytes Absolute 0.79 #; Lymphocytes # 1.1 10*3/uL (1.4-4.0); Lymphocytes % 5.6 % (21.2-54.2); Mean Corpuscular HGB Conc 31.1 GM/DL (32-36); Mean Corpuscular Hemoglobin 36 PG (27-34); Mean Corpuscular Volume 115.4 FL (87-102); Mean Platelet Volume 15.1 FL (9.6-12.0); Monocytes # 0.6 10*3/uL (0.11-0.8); Monocytes % 3.3 % (1.7-12.7); NRBC # 0.89 10*3/uL; Neutrophils # 16.5 10*3/uL (1.4-7.4); Neutrophils % 86.3 % (38.7-73.9); Platelet Count 76 T/CUMM (130-400); Red Blood Count 2.79 MC/CUMM (3.8-5.5); Red Cell Distribution Width 21.5 % (9.3-17.3); White Blood Count 19.1 T/CUMM (4-12)
[2017-07-17 05:06] LABS: Band Neutrophils 16 % (0-10); Burr Cells Few; Lymphocytes 1 % (20-55); Metamyelocytes 3 %; Nucleated Red Blood Cells 4 (0-5); Segmented Neutrophils 76 % (50-85); Total Cells Counted 100
[2017-07-17 05:07] LABS: Macrocytosis 1+; Ovalocytes Slight; Polychromasia Slight
[2017-07-17 05:08] LABS: Acanthocytes Few; Pappenheimer Bodies Slight; Platelet Estimate Decreased
[2017-07-17] MEDS: INSULIN LISPRO 100 UNIT/ML SUBCUT SCH ×2 (08:59→15:21)
[2017-07-17] MEDS: MORPHINE 4 MG/1 ML VIAL IV PRN (11:03)
[2017-07-17] MEDS: SODIUM CHLORIDE 0.9% 1,000 ML IV SCH (15:18)
[2017-07-17] MEDS: methylPREDNISolone SOD SUC 40 MG/1 ML VIAL IV SCH (19:22)
[2017-07-17 19:35] VITALS: BP 36/19
== END 2017-07-17 18:40 | disposition expired | DRG 871 ==
LOC: EDUNIT# → EDBD → N.ED 16:44 → SUATTDRO 17:59 → N.EDINP 17:59 → N.CC 19:14
PROVIDERS: ATTEND Internal Medicine